=== PATIENT | male | born 1980 | race Caucasian/White ===

== ENCOUNTER 2017-08-03 20:59 | Emergency (ER) | payer OTHER ==
[~2017-08-03] VITALS: Ht 170.2 cm; Wt 72.3 kg
[2017-08-03] MEDS ORDERED: PERCOCET 5/31 TABLET PO (22:21)
[2017-08-03 23:33] VITALS: BP 139/98
== END 2017-08-03 23:05 | disposition home or self-care (01) ==
LOC: EDBD 20:59 → EME 20:59
PROC: 2W3RX1Z Immobilization of Left Lower Leg using Splint (ICD-10-PCS; principal; 2017-08-03)
DX: S92.322A Displaced fracture of second metatarsal bone, left foot, initial encounter for closed fracture (principal); W01.0XXA Fall on same level from slipping, tripping and stumbling without subsequent striking against object, initial encounter; Y93.31 Activity, mountain climbing, rock climbing and wall climbing; Y92.838 Other recreation area as the place of occurrence of the external cause; I10 Essential (primary) hypertension; F17.200 Nicotine dependence, unspecified, uncomplicated
CPT/HCPCS: 73590; 73610; 73630; 99281; 99285